=== PATIENT | male | born 1940 | race Caucasian/White ===

== ENCOUNTER 2022-05-14 12:31 | Outpatient (CLI) | payer MEDICARE, BC | END 2022-05-14 12:32 | disposition home or self-care (01) | LOC: CSHCP 12:31 | PROVIDERS: ATTEND Internal Medicine Critical Care Medicine | DX: R06.02 Shortness of breath (principal); R94.2 Abnormal results of pulmonary function studies | CPT/HCPCS: 94010; 94726; 94729; 94760 ==